=== PATIENT | male | born 1965 ===

== ENCOUNTER 2024-11-21 14:56 | Inpatient (IN) | payer OTHER, SELFPAY ==
[2024-11-21 15:24] VITALS: BP 141/67
[2024-11-21] MEDS: NULYTELY SOLUTION 4 LITERS PO (16:40)
[2024-11-21 16:42] LABS: % Basophils 0.3 % (0-2); % Eosinophils 0.5 % (0-6); % Lymphocytes 25.1 % (20.5-51.1); % Neutrophils 66.1 % (42.2-75.2); Absolute Lymphocytes 0.9 10^3/uL (1.2-3.4); Absolute Monocytes 0.3 10^3/uL (0.1-0.6); Absolute Neutrophils 2.5 10^3/uL (1.4-6.5); Hematocrit 33.7 % (39.0-52.0); Hemoglobin 11.3 g/dL (13.0-18.0); Mean Corp Hgb Conc. 33.5 g/dL (33.0-37.0); Mean Corpuscular Hgb 32.8 pg (27.0-31.0); Mean Platelet Volume 10.4 fL (7.4-10.4); Nucleated Red Blood Cells % 0 % (-); Platelet Count 157 10^3/uL (130-400); Red Blood Cell Count 3.44 10^6/uL (4.70-6.10); Red Cell Dist. Width 12.1 % (11.5-14.5); White Blood Cell Count 3.7 10^3/uL (4.8-10.8)
[2024-11-21 16:46] LABS: INR 1.18; PT 15.3 Sec (11.4-14.6)
[2024-11-21 16:47] LABS: APTT 31.4 Sec (23.4-35.0)
[2024-11-21 17:04] LABS: Blood Urea Nitrogen 15 mg/dl (9-20); Calcium 9.2 mg/dl (8.4-10.2); Carbon Dioxide 21 mmol/L (22-30); Chloride 101 mmol/L (98-107); Estimated Creatinine Clearance 107 ml/min; Glucose 88 mg/dl (70-99); Potassium 4.7 mmol/L (3.5-5.1); Sodium 133 mmol/L (135-145); eGFR > 60.00
--- NOTE | 2024-11-21 17:15 | VATNOTE ---
unable to start IV and obtain labs x2; Day KAMILLA De Leon Serafin to attempt.
--- NOTE | 2024-11-21 17:25 | W.PN.ADMIT ---
Progress Note - Admit
Progress Note - Admit
Full admission H&P to be dictated.
History, vitals, labs, prior records reviewed. Patient seen and examined.
59-year-old male known to me with Down syndrome who has a known sigmoid stenosis/stricture (at 30 cm based on prior reports) with associated diverticular disease which is apparently unable to be traversed endoscopically. I saw him in the office a
few months ago for evaluation. I initially recommended a virtual colonoscopy which was not ultimately performed due to a number of reasons. I also recommended planned admission to the hospital for bowel prep day 1, flexible sigmoidoscopy by me for
tattooing of the stricture on day 2, followed by a robotic sigmoidectomy on day 3. I have previously discussed the planned operation in detail with his power of prosecuting attorney/next of kin, Andres. Risks and benefits were discussed previously in the
office and over the phone. Risks covered included but are not limited to bleeding, infection, anastomotic leak, and asthma stricture, ureteral injury, bowel or solid organ injury, hernia formation, conversion open, potential for a stoma, urinary
sexual dysfunction, and anesthetic risk. Andres understood and agreed to the procedure. Today he will undergo the bowel prep. I will obtain a hospitalist consult for medical management of this medical issues. Loss of ET nursing Ferdinand tomorrow
just in case a temporary stoma is created.
--- NOTE | 2024-11-21 17:54 | CON.HOSP ---
Consultation
-
Date/Time Consultation Requested: November 21, 2024 5:55 PM
Date/Time Consultation Performed: November 21, 2024 6 PM
Requesting Provider: Dr. Collins
Performing Provider: Dr. Urban
Reason for Consultation: Hypertension, diabetes
Family Physician
-
Family Physician: Gini Gloria MD
Chief Complaint
-
Sigmoid stricture
History of Present Illness
59-year-old male with Down syndrome brought in for management of his sigmoid stricture. We were asked to see him in consultation for management of his medical conditions including diabetes and high blood pressure.
Patient himself is a poor historian due to Down syndrome. Information obtained by reviewing medical records.
Medical History
Past Medical History
Past Medical History: Reports Other
Additional Past Medical History:
DM2
Essential hypertension
Hyperlipidemia
GERD
Down syndrome
Diverticulosis
Sigmoid stricture
Past Surgical History: Reports None
Social History
Tobacco: Non-smoker
Alcohol: None
Drug: None
Family History
Family History: Reviewed & Not Pertinent
Allergies / Home Medications
Allergies reflects when Allergies were last updated in [employer].
Home Medications with original date entered in [employer]
Allergy/Medication List:
Allergies
Allergy/AdvReac Type Severity Reaction Status Date / Time
No Known Allergies Allergy Unverified 11/21/24 12:56
Home Medications
Vitamin D (with calcium) 11/21/24
atorvastatin 40 mg tablet 40 mg PO DAILY 11/21/24
cyanocobalamin (vitamin B-12) 1,000 mcg tablet 1,000 mcg PO DAILY 11/21/24
folic acid 1 mg tablet 1 mg PO DAILY 11/21/24
gemfibrozil 600 mg tablet 600 mg PO BID 11/21/24
metformin 1,000 mg tablet,extended release 24hr (osmotic) 1,000 mg PO BID 11/21/24
omeprazole 20 mg tablet,delayed release 20 mg PO DAILY 11/21/24
ramipril 10 mg tablet 10 mg PO DAILY 11/21/24
vitamin B complex 1 tab PO DAILY 11/21/24
Review of Systems
-
History Source: Patient
A 12 point Review of Systems was completed except as noted: Yes
Physical Exam
Vital Signs
Vital Signs
Temp Pulse Resp BP Pulse Ox
97.6 F 60 16 141/67 100
11/21/24 15:24 11/21/24 15:24 11/21/24 15:24 11/21/24 15:24 11/21/24 15:24
Physical Exam
General: Well Developed, Well Nourished, No Apparent Distress and Comfortable
HEENT: Normocephalic, Anicteric and Moist Mucous Membranes
Respiratory: Clear
Cardiac: S1/S2 and Regular Rhythm
GI: Soft, Non Tender and Non Distended
Musculoskeletal: No Clubbing, No Cyanosis and No Edema
Skin: Warm and Dry
Neuro: Awake, Alert and Oriented
Hematologic/Lymphatic: No Lymphadenopathy
Psych: Calm
Laboratory Results
-
Laboratory Results
11/21/24 16:25
11/21/24 16:25
PT 15.3 Sec (11.4-14.6) H 11/21/24 16:25
INR 1.18 11/21/24 16:25
APTT 31.4 Sec (23.4-35.0) 11/21/24 16:25
Impression / Plan
-
Sigmoid stricture -due to diverticulosis. Plan per colorectal surgery. Flexible sigmoidoscopy tomorrow, followed by robotic sigmoidectomy the following day. Getting bowel prep today.
Appears medically stable to proceed. Can check preoperative EKG.
Macrocytic anemia -hemoglobin noted to be 11.3. MCV 98. Etiology and chronicity unknown. Can check anemia labs.
Leukopenia -WBC count 3.7. Absolute lymphopenia noted. ANC is normal. Unclear if this is his baseline, recheck CBC in the morning.
Hyponatremia -sodium 133. Unclear etiology. Check serum osmolality and urine studies. Initiate 48 ounce fluid restriction.
Essential hypertension -stable. Continue ramipril.
Hyperlipidemia -on gemfibrozil, atorvastatin.
DM2 without hyperglycemia -on metformin at home. Hold metformin in the hospital, use low resistance NovoLog scale. Check hemoglobin A1c.
GERD
Diverticulosis
Down syndrome
Obesity due to excess calories
Thank you very much for the consultation. Will follow along with you.
--- NOTE | 2024-11-21 18:26 | PTCARENOTE ---
Received patient as a direct admission. Arrived around 1515 accompanied by cousin/poa. Lilia Esteban, PAC made aware of patients arrival. Patient oriented to room. Call patel in reach.
[2024-11-21 18:33] LABS: Reticulocyte Count 1.5 % (0.4-2.8)
[2024-11-21 18:49] LABS: Iron 112 ug/dl (49-181)
[2024-11-21 18:58] LABS: Percent Saturation 41 % (20-50); Total Iron Binding Capacity 268 ug/dl (261-462)
[2024-11-21 19:05] LABS: Osmolality Serum 274 mOsm/kg (275-300)
[2024-11-21 19:28] LABS: Osmolality Urine 191 mOsm/kg (300-900)
[2024-11-21 19:35] LABS: Urine Sodium 39 mmol/L (30-90)
[2024-11-21 20:16] LABS: Folate > 20.0 ng/ml (2.76-20); Vitamin B12 223 pg/ml (239-931)
[2024-11-21] MEDS: LOPID 600 MG PO (22:17)
[2024-11-21 23:05] VITALS: BP 126/64
[2024-11-22] VITALS (10 sets, daily range): BP systolic 14–132; BP diastolic 51–72
[2024-11-22] LABS: Glucose - Point of Care 85 mg/dl (70-99)
[2024-11-22] MEDS: NOVOLOG FLEXPEN-LOW RESISTANCE SC ×5 (00:08→22:54)
[2024-11-22] MEDS: NSS 1000 IV ×2 (00:36→13:29)
[2024-11-22 05:50] LABS: Glucose - Point of Care 79 mg/dl (70-99)
--- NOTE | 2024-11-22 06:41 | PTCARENOTE ---
Pt with multiple BM throughout shift, @ this time yellowish brown, watery.
--- NOTE | 2024-11-22 06:43 | PTCARENOTE ---
Pt blood glucose 79, currently NPO. provided of apple juice understands to report s/s of hypoglycemia to staff immediately. Pt verbalizes s/s of hypoglycemia
--- NOTE | 2024-11-22 07:48 | HPS.HSE ---
Family Physician
-
Family Physician: Gini Gloria MD
Chief Complaint
-
stomach pains/diarrhea
History of Present Illness
59-year-old male with a history of Down syndrome and diabetes presents to [facility] as a direct admission for bowel prep and surgery. He has a known diverticular stricture at 30 cm with associated diverticular disease. He had been
evaluated in the office by Dr. Collins and initially having scheduled for a virtual colonoscopy which was not completed. Due to the sigmoid stricture, it was recommended he undergo a robotic sigmoidectomy. He is admitted for bowel prep on day 1,
flexible sigmoidoscopy on day 2, followed by a robotic sigmoidectomy on day 3.
Medical History
Past Medical History
Past Medical History: Reports Other (downs syndrome, DM2, Essential hypertension, Hyperlipidemia, GERD, Down syndrome, Diverticulosis, Sigmoid stricture)
Past Surgical History: Reports None and Other
Social History
Tobacco: Non-smoker
Alcohol: None
Drug: None
Living: With Family
Family History
Family History: Not pertinent
Allergies / Home Medications
Allergies reflects when Allergies were last updated in [employer].
Home Medications with original date entered in [employer]
Allergy/Medication List:
Allergies: NKDA
Medications:
Vitamin D (with calcium) 11/21/24
atorvastatin 40 mg tablet 40 mg PO DAILY 11/21/24
cyanocobalamin (vitamin B-12) 1,000 mcg tablet 1,000 mcg PO DAILY 11/21/24
folic acid 1 mg tablet 1 mg PO DAILY 11/21/24
gemfibrozil 600 mg tablet 600 mg PO BID 11/21/24
metformin 1,000 mg tablet,extended release 24hr (osmotic) 1,000 mg PO BID 11/21/24
omeprazole 20 mg tablet,delayed release 20 mg PO DAILY 11/21/24
ramipril 10 mg tablet 10 mg PO DAILY 11/21/24
vitamin B complex 1 tab PO DAILY 11/21/24
Review of Systems
-
History Source: Patient
Abdomen/GI: Reports Abdominal Pain and Diarrhea
Physical Exam
Vital Signs
Vital Signs
Temp Pulse Resp BP Pulse Ox
97.4 F 58 17 126/64 97
11/21/24 23:05 11/21/24 23:05 11/21/24 23:05 11/21/24 23:05 11/21/24 23:05
Physical Exam
General: Well Developed and Well Nourished
GI: Soft, Non Tender and Non Distended
Skin: Warm and Dry
Neuro: AO x 3
Psych: Calm
Laboratory Results
-
11/21/24 16:25
Laboratory Results
PT 15.3 Sec (11.4-14.6) H 11/21/24 16:25
INR 1.18 11/21/24 16:25
APTT 31.4 Sec (23.4-35.0) 11/21/24 16:25
Data Reviewed
-
Lab Data: Labs Reviewed by me and Discussed with Physician
Old Records: Reviewed
Impression/Plan
-
IMPRESSION: 59-year-old male with a history of Down syndrome and sigmoid stricture presents to [facility] as a direct admission for a bowel prep, followed by flexible sigmoidoscopy, followed by robotic sigmoidectomy
PLAN:
-Bowel prep today
-Clear liquid diet and n.p.o. at midnight
-Preop medications and laboratory work been ordered
-Out of bed as tolerated
-Will consult hospitalist due to diabetes
-Wound RN for stoma marking
[2024-11-22 07:53] LABS: % Basophils 0.4 % (0-2); % Eosinophils 0.8 % (0-6); % Lymphocytes 32.4 % (20.5-51.1); % Monocytes 10.4 % (1.7-9.3); Absolute Lymphocytes 0.8 10^3/uL (1.2-3.4); Absolute Monocytes 0.3 10^3/uL (0.1-0.6); Absolute Neutrophils 1.4 10^3/uL (1.4-6.5); Hemoglobin 11.2 g/dL (13.0-18.0); Mean Corp Hgb Conc. 33.9 g/dL (33.0-37.0); Mean Corpuscular Hgb 33.3 pg (27.0-31.0); Mean Corpuscular Volume 98.2 fL (80.0-94.0); Mean Platelet Volume 10.7 fL (7.4-10.4); Nucleated Red Blood Cells % 0 % (-); Platelet Count 159 10^3/uL (130-400); Red Blood Cell Count 3.36 10^6/uL (4.70-6.10); Red Cell Dist. Width 12.2 % (11.5-14.5); White Blood Cell Count 2.5 10^3/uL (4.8-10.8)
[2024-11-22] MEDS: FOLVITE 1 MG PO (08:37)
[2024-11-22] MEDS: LOPID 600 MG PO ×2 (08:38→21:16)
[2024-11-22] MEDS: LIPITOR 40 MG PO (08:38)
[2024-11-22] MEDS: PROTONIX 40 MG PO (08:38)
[2024-11-22] MEDS: ALTACE 10 MG PO (08:38)
[2024-11-22 08:45] LABS: Glycohemoglobin (HgbA1c) 6.3 % (4.0-5.6)
--- NOTE | 2024-11-22 10:15 | CM ---
Reviewed the chart notes and spoke with the patient at the bedside and his cousin and CHARMAINE Campos via telephone. The patient resides alone in a two story home with one step to enter. The patient reports no DME or SNF in the past, but has had VN.
The patient could not recall the name of the agency. He is scheduled for a flexible sigmoidoscopy today and a robotic sigmoidectomy tomorrow. The patient confirmed his pharmacy of choice is the [facility] [place]. continues to be
available to patient/family and is monitoring medical plan for needs at discharge.
Plan: Discharge plans will depend on the patient's progress.
--- NOTE | 2024-11-22 10:33 | W.PN.UPDATE ---
Update Note
Progress Note Update
Flexible sigmoidoscopy complete. Some residual stool noted. Intrinsic benign appearing stenosis (not traversable at 25 cm); tattoos placed at 22 cm. Diverticulosis. Tolerated well.
Will resume clears. NPO after MN. Magnesium Citrate later today. OR tomorrow.
Patient's POAAndres, updated.
[2024-11-22 10:42] LABS: Glucose - Point of Care 81 mg/dl (70-99)
[2024-11-22 12:04] LABS: Glucose - Point of Care 57 mg/dl (70-99)
[2024-11-22 12:25] LABS: Glucose - Point of Care 72 mg/dl (70-99)
--- NOTE | 2024-11-22 12:42 | WOUNDNOTE ---
[facility] RN NOTE: Patient visited for bilateral stoma siting as ordered by NICK Bustillos. Patient alert and cooperative. CHARMAINE Campos at bedside. Procedure and rationale for stoma siting explained to patient and POA. The rectus muscle was located and
care was taken to avoid creases and folds. Patient and Andres made aware that surgeon will make final determination for stoma placement. Will follow up with patient if ostomy is placed.
--- NOTE | 2024-11-22 13:00 | W.PN.HOSP.TC ---
Today's Communication/Plan
-
Increase vitamin B12
Assessment / Plan
Assessment / Plan
Gen-AAOx3, NAD, obese
HEENT-NC, AT, anicteric, clear oral mm
Neck-supple
CV-reg, no M, +S1/S2
Lungs-clear B/L
Abd-soft, NT, ND
Ext-no edema
Musculoskeletal-no cyanosis, clubbing
Skin-warm and dry
Neuro-grossly non-focal
Psych-calm, cooperative
Sigmoid stricture -due to diverticulosis. Plan per colorectal surgery. Flexible sigmoidoscopy tomorrow, followed by robotic sigmoidectomy the following day. Getting bowel prep today.
Appears medically stable to proceed. Preoperative EKG shows sinus bradycardia, cannot rule out anterior infarct age undetermined. I spoke with Andres and he denies any history of heart disease for Eriberto. No history of chest pain or shortness of
breath. Recommend outpatient follow-up with his primary care doctor.
Macrocytic anemia -hemoglobin noted to be 11.3. MCV 98. Etiology and chronicity unknown. Vitamin B12 levels noted to be low despite taking B12 replacement at home. Can increase dose to 2000 mcg daily.
No evidence of iron deficiency. Folic acid level normal.
Leukopenia - Absolute lymphopenia noted. ANC is normal. Unclear if this is his baseline.
Hyponatremia -sodium 133. Unclear etiology. Continue fluid restriction. Urine osmolality 191, urine sodium 39, serum osmolality 274.
Essential hypertension -stable. Continue ramipril.
Hyperlipidemia -on gemfibrozil, atorvastatin.
DM2 without hyperglycemia -on metformin at home. Hold metformin in the hospital, use low resistance NovoLog scale. Hemoglobin A1c 6.3%.
GERD
Diverticulosis
Down syndrome
Obesity due to excess calories
Family updated at the bedside.
Anticipated Discharge: > 48 hours
Subjective/Interval History
-
Date of Service: November 22, 2024
Patient seen and examined. No complaints.
Objective Data
-
Labs:
Laboratory Results
11/22/24
07:15
WBC 2.5 L
Hgb 11.2 L
Hct 33.0 L
Plt Count 159
Vital Signs:
Vital Signs
Temp Pulse Resp BP Pulse Ox
98.4 F 52 14 121/59 97
11/22/24 10:58 11/22/24 10:58 11/22/24 10:58 11/22/24 10:58 11/22/24 10:58
I&O
11/21/24 11/22/24 11/23/24
06:59 06:59 06:59
Intake Total 780 / 780
Balance 780 / 780
Review of Systems
-
History Source: Patient
All other systems: Reviewed and negative
[2024-11-22] MEDS: NEOMYCIN 1000 MG PO ×3 (13:28→22:56)
[2024-11-22] MEDS: FLAGYL 1000 MG PO ×3 (13:28→22:56)
[2024-11-22] MEDS: VITAMIN B-12 2000 MCG PO (13:28)
[2024-11-22 14:05] LABS: Glucose - Point of Care 81 mg/dl (70-99)
[2024-11-22] MEDS: CITROMA 300 ML PO (15:00)
[2024-11-22 18:04] LABS: Glucose - Point of Care 78 mg/dl (70-99)
[2024-11-22 22:51] LABS: Glucose - Point of Care 81 mg/dl (70-99)
[2024-11-23] VITALS (15 sets, daily range): BP systolic 80–131; BP diastolic 45–95
[2024-11-23] MEDS: NSS 1000 IV (02:11)
[2024-11-23 03:28] LABS: Glucose - Point of Care 76 mg/dl (70-99)
[2024-11-23 05:30] LABS: Glucose - Point of Care 76 mg/dl (70-99)
[2024-11-23] MEDS: ENTEREG 12 MG PO (06:19)
[2024-11-23] MEDS: NEURONTIN 600 MG PO (06:19)
[2024-11-23] MEDS: TYLENOL 1000 MG PO (06:19)
[2024-11-23] MEDS: HEPARIN 5000 UNITS SC (06:20)
[2024-11-23] MEDS: NOVOLOG FLEXPEN-LOW RESISTANCE SC ×3 (06:24→23:27)
[2024-11-23] MEDS: INVANZ 60 MG IV (06:30)
[2024-11-23 06:37] LABS: % Basophils 0.3 % (0-2); % Eosinophils 0.3 % (0-6); % Immature Granulocytes 0.3 % (0-0.5); % Lymphocytes 26.6 % (20.5-51.1); % Monocytes 8.7 % (1.7-9.3); % Neutrophils 63.8 % (42.2-75.2); Absolute Lymphocytes 0.9 10^3/uL (1.2-3.4); Absolute Monocytes 0.3 10^3/uL (0.1-0.6); Absolute Neutrophils 2.1 10^3/uL (1.4-6.5); Hematocrit 32.2 % (39.0-52.0); Hemoglobin 10.7 g/dL (13.0-18.0); Mean Corp Hgb Conc. 33.2 g/dL (33.0-37.0); Mean Corpuscular Hgb 32.7 pg (27.0-31.0); Mean Corpuscular Volume 98.5 fL (80.0-94.0); Mean Platelet Volume 10.3 fL (7.4-10.4); Nucleated Red Blood Cells % 0 % (-); Platelet Count 142 10^3/uL (130-400); Red Blood Cell Count 3.27 10^6/uL (4.70-6.10); Red Cell Dist. Width 12.1 % (11.5-14.5); White Blood Cell Count 3.3 10^3/uL (4.8-10.8)
[2024-11-23 07:07] LABS: Blood Urea Nitrogen 9 mg/dl (9-20); Calcium 8.6 mg/dl (8.4-10.2); Carbon Dioxide 17 mmol/L (22-30); Chloride 106 mmol/L (98-107); Estimated Creatinine Clearance 107 ml/min; Glucose 73 mg/dl (70-99); Potassium 4.4 mmol/L (3.5-5.1); Sodium 135 mmol/L (135-145); eGFR > 60.00
[2024-11-23 09:15] LABS: Glucose - Point of Care 134 mg/dl (70-99)
--- NOTE | 2024-11-23 12:11 | W.IMMPOSTOP ---
Surgical Immed Post Op Note
-
Primary Surgeon: Meño Collins MD
Assisting Surgeon: YFN De Leon; LM Fuller
Pre-op Diagnosis: sigmoid stricture
Post-op Diagnosis: same
Procedure Performed: 1) robotic sigmoidectomy 2) extensive lysis of adhesions 3) flexible sigmoidoscopy
Anesthesia Type: general plus local
Specimen / Cultures: sigmoid colon to include stricture
Estimated Blood Loss: 50 cc
Complications: no immediate
Operative Findings: stenotic sigmoid adherent to itself, to small bowel, and to pelvic sidewall (lots of chronic adhesions)
#19 Jimbo in pelvis.
Wen, stents, ICG by Dr. Rod of urology. One stent removed at end of case.
Will send back to med surg.
Sips and chips ok.
Patient's POA, Andres, updated via phone.
[2024-11-23 12:34] LABS: Glucose - Point of Care 95 mg/dl (70-99)
--- NOTE | 2024-11-23 13:14 | W.PN.HOSP.TC ---
Today's Communication/Plan
-
Continue current care
Assessment / Plan
Assessment / Plan
Gen-AAOx3, NAD, obese
HEENT-NC, AT, anicteric, clear oral mm
Neck-supple
CV-reg, no M, +S1/S2
Lungs-clear B/L
Abd-soft, NT, ND
Ext-no edema
Musculoskeletal-no cyanosis, clubbing
Skin-warm and dry
Neuro-grossly non-focal
Psych-calm, cooperative
Sigmoid stricture -due to diverticulosis. Stable after robotic sigmoidectomy, lysis of adhesions and flexible sigmoidoscopy 11/23/2024.
Appears medically stable to proceed. Preoperative EKG shows sinus bradycardia, cannot rule out anterior infarct age undetermined. I spoke with Andres and he denies any history of heart disease for Eriberto. No history of chest pain or shortness of
breath. Recommend outpatient follow-up with his primary care doctor.
Macrocytic anemia -hemoglobin relatively stable, monitor for now. MCV 98. Etiology and chronicity unknown. Vitamin B12 levels noted to be low despite taking B12 replacement at home. Continue higher dose of B12.
No evidence of iron deficiency. Folic acid level normal.
Leukopenia - Absolute lymphopenia noted. ANC is normal. Unclear if this is his baseline.
Hyponatremia -sodium 133. Unclear etiology. Continue fluid restriction. Urine osmolality 191, urine sodium 39, serum osmolality 274.
Essential hypertension -stable. Continue ramipril.
Hyperlipidemia -on gemfibrozil, atorvastatin.
DM2 without hyperglycemia -on metformin at home. Hold metformin in the hospital, use low resistance NovoLog scale. Hemoglobin A1c 6.3%. Glucose is controlled.
GERD
Diverticulosis
Down syndrome
Obesity due to excess calories
Full code
Anticipated Discharge: > 48 hours
Subjective/Interval History
-
Date of Service: November 23, 2024
Patient seen and examined. Currently somewhat sedated but arousable in the recovery room. No complaints.
Objective Data
-
Labs:
Laboratory Results
11/23/24
06:00
WBC 3.3 L
Hgb 10.7 L
Hct 32.2 L
Plt Count 142
Sodium 135
Potassium 4.4
Chloride 106
Carbon Dioxide 17 L
BUN 9
Creatinine 0.8
Glucose 73
Calcium 8.6
Vital Signs:
Vital Signs
Temp Pulse Resp BP Pulse Ox
97.0 F 63 16 110/69 99
11/23/24 12:22 11/22/24 22:55 11/22/24 22:55 11/22/24 22:55 11/23/24 12:22
I&O
11/22/24 11/23/24 11/24/24
06:59 06:59 06:59
Intake Total 780 / 780 480 / 480
Output Total 250 / 250
Balance 780 / 780 480 / 480 -250 / -250
Review of Systems
-
History Source: Patient
All other systems: Reviewed and negative
[2024-11-23] MEDS: TORADOL 10 MG IV ×3 (13:30→23:27)
[2024-11-23] MEDS: NORMOSOL-R/PLASMALYTE-A 1000 IV (13:39)
[2024-11-23] MEDS: LOPID PO (14:20)
--- NOTE | 2024-11-23 15:22 | CM ---
Reviewed the chart notes. Patient is s/p robotic sigmoidectomy, extensive lysis of adhesions, and flexible sigmoidoscopy today. CM continues to be available to patient/family and is monitoring medical plan for needs at discharge.
Plan: Discharge to home when medically stable. No needs identified at this time.
--- NOTE | 2024-11-23 15:39 | PTCARENOTE ---
pt received from PACU drowsy but responds to verbal stimuli. denies pain. LCTA RA B/L. abd tender, 4 surgical sites well approximated with glue and rlq MOHAMUD drain site covered with surgical dressing CDI. MOHAMUD output SS moderate amt. Wen draining dark
red. No edema, +PP b/l. CB in reach.
[2024-11-23] MEDS: ALTACE 10 MG PO (15:48)
[2024-11-23] MEDS: PROTONIX 40 MG PO (15:48)
[2024-11-23] MEDS: FOLVITE 1 MG PO (15:48)
[2024-11-23] MEDS: TYLENOL 650 MG PO ×3 (15:52→23:29)
[2024-11-23] MEDS: LIPITOR 40 MG PO (15:52)
[2024-11-23] MEDS: VITAMIN B-12 2000 MCG PO (15:52)
[2024-11-23 17:36] LABS: Glucose - Point of Care 169 mg/dl (70-99)
[2024-11-23] MEDS: NOVOLOG FLEXPEN-LOW RESISTANCE 1 UNITS SC (19:07)
[2024-11-23] MEDS: LOPID 600 MG PO (20:50)
[2024-11-23 23:27] LABS: Glucose - Point of Care 116 mg/dl (70-99)
[2024-11-24 03:36] VITALS: BP 103/66
[2024-11-24] MEDS: NORMOSOL-R/PLASMALYTE-A 1000 IV (03:39)
[2024-11-24] MEDS: TYLENOL 650 MG PO ×5 (03:39→23:36)
[2024-11-24 05:49] LABS: Glucose - Point of Care 110 mg/dl (70-99)
[2024-11-24] MEDS: TORADOL 10 MG IV ×4 (05:50→23:35)
[2024-11-24] MEDS: NOVOLOG FLEXPEN-LOW RESISTANCE SC (05:51)
[2024-11-24 06:29] LABS: % Immature Granulocytes 0.3 % (0-0.5); % Lymphocytes 8.2 % (20.5-51.1); % Monocytes 7.3 % (1.7-9.3); % Neutrophils 84.2 % (42.2-75.2); Absolute Lymphocytes 0.5 10^3/uL (1.2-3.4); Absolute Monocytes 0.5 10^3/uL (0.1-0.6); Absolute Neutrophils 5.6 10^3/uL (1.4-6.5); Hematocrit 30.1 % (39.0-52.0); Hemoglobin 10.2 g/dL (13.0-18.0); Mean Corp Hgb Conc. 33.9 g/dL (33.0-37.0); Mean Corpuscular Hgb 32.7 pg (27.0-31.0); Mean Corpuscular Volume 96.5 fL (80.0-94.0); Mean Platelet Volume 10.3 fL (7.4-10.4); Nucleated Red Blood Cells % 0 % (-); Platelet Count 155 10^3/uL (130-400); Red Blood Cell Count 3.12 10^6/uL (4.70-6.10); White Blood Cell Count 6.6 10^3/uL (4.8-10.8)
[2024-11-24 06:54] LABS: Blood Urea Nitrogen 15 mg/dl (9-20); Carbon Dioxide 18 mmol/L (22-30); Chloride 107 mmol/L (98-107); Estimated Creatinine Clearance 94 ml/min; Glucose 112 mg/dl (70-99); Magnesium 2.4 mg/dl (1.6-2.3); Potassium 4.4 mmol/L (3.5-5.1); Sodium 135 mmol/L (135-145); eGFR > 60.00
[2024-11-24 07:35] VITALS: BP 139/64
[2024-11-24] MEDS: ALTACE 10 MG PO (09:09)
[2024-11-24] MEDS: PROTONIX 40 MG PO (09:09)
[2024-11-24] MEDS: VITAMIN B-12 2000 MCG PO (09:10)
[2024-11-24] MEDS: FOLVITE 1 MG PO (09:10)
[2024-11-24] MEDS: LIPITOR 40 MG PO (09:11)
[2024-11-24] MEDS: LOPID 600 MG PO ×2 (09:11→19:45)
[2024-11-24] MEDS: ENTEREG 12 MG PO ×2 (09:11→19:45)
--- NOTE | 2024-11-24 09:29 | W.PN.CRS1 ---
Today's Communication / Plan
-
clears
stent removed
d/c noguera
lovenox
Assessment/Plan
-
POD#1 1) robotic sigmoidectomy 2) extensive lysis of adhesions 3) flexible sigmoidoscopy
Vitals normal
Hgb 10.2. Wbc 6.6
-Advance to clears
-D/C IVFs when tolerating po intake
-Stent removed by provider at bedside
-D/C noguera
-OOB as tolerated
-Lovenox for DVT prophylaxis. TEDS/SCDS in place.
-Pain control: tylenol/toradol standing, Dilaudid PRN
-OR pathology pending
-Discussed surgery with patient and cousin at bedside
-Will remove drain prior to d/c
-Appreciate medicine
Subjective Data
Procedure
11/23/24- 1) robotic sigmoidectomy 2) extensive lysis of adhesions 3) flexible sigmoidoscopy
Subjective Data
Date of Service: November 24, 2024
Patient states he feels well. He has no nausea or vomiting. He is hungry. He has no complaints.
Objective Data
-
Vital Signs
Temp Pulse Resp BP Pulse Ox
97.9 F 74 16 139/64 97
11/24/24 07:35 11/24/24 07:35 11/24/24 07:35 11/24/24 07:35 11/24/24 07:35
Intake & Output
11/23/24 11/24/24 11/25/24
06:59 06:59 06:59
Intake Total 480 / 480 1280 / 1280
Output Total 1460 / 1460
Balance 480 / 480 -180 / -180
Intake:
Oral fluids 480 / 480 120 / 120
IV fluids (Total) 1160 / 1160
Normosal 200 / 200
Output:
Drain Output (Total) 160 / 160
Right Upper Abdomen Santana- 160 / 160
Li
Urine, Noguera 1300 / 1300
Other:
Number of approximated MODERATE 2
amounts of urine
Number of unmeasured liquid
stools
Rectum 1
Lab Results
11/24/24 05:46
11/24/24 05:46
Physical Exam
-
General: No Acute Distress and AOx3
Abdomen: Soft, Non Distended, Non Tender and Other (odilia drain serosanginous)
Skin: Warm and Dry
--- NOTE | 2024-11-24 09:48 | CM ---
Reviewed the chart notes. Diet advanced to clears. Stents and noguera removed. Per notes, drain will be removed prior to discharge. CM continues to be available to patient/family and is monitoring medical plan for needs at discharge.
Plan: Discharge to home when medically stable. No needs anticipated.
[2024-11-24 11:30] VITALS: BP 117/61
[2024-11-24 12:20] LABS: Glucose - Point of Care 157 mg/dl (70-99)
[2024-11-24] MEDS: NOVOLOG FLEXPEN-LOW RESISTANCE 1 UNITS SC (13:14)
--- NOTE | 2024-11-24 13:49 | W.PN.HOSP.TC ---
Today's Communication/Plan
-
Continue current care
Assessment / Plan
Assessment / Plan
Gen-AAOx3, NAD, obese
HEENT-NC, AT, anicteric, clear oral mm
Neck-supple
CV-reg, no M, +S1/S2
Lungs-clear B/L
Abd-soft, NT, ND
Ext-no edema
Musculoskeletal-no cyanosis, clubbing
Skin-warm and dry
Neuro-grossly non-focal
Psych-calm, cooperative
Sigmoid stricture -due to diverticulosis. Stable after robotic sigmoidectomy, lysis of adhesions and flexible sigmoidoscopy 11/23/2024. Stools are recorded as brown/green and loose.
Tolerating clears.
Macrocytic anemia -hemoglobin relatively stable, monitor for now. MCV 98. Etiology and chronicity unknown. Vitamin B12 levels noted to be low despite taking B12 replacement at home. Continue higher dose of B12.
No evidence of iron deficiency. Folic acid level normal.
Leukopenia - Absolute lymphopenia noted. ANC is normal. Unclear if this is his baseline. WBC count now normal.
Hyponatremia -resolved.
Essential hypertension -stable. Continue ramipril.
Hyperlipidemia -on gemfibrozil, atorvastatin.
DM2 without hyperglycemia -on metformin at home. Hold metformin in the hospital, use low resistance NovoLog scale. Hemoglobin A1c 6.3%. Glucose is controlled.
GERD
Diverticulosis
Down syndrome
Obesity due to excess calories
Full code
Family updated at the bedside.
Anticipated Discharge: 24 - 48 hours
Subjective/Interval History
-
Date of Service: November 24, 2024
Patient seen and examined. Complaining of mild abdominal pain.
Objective Data
-
Labs:
Laboratory Results
11/24/24
05:46
WBC 6.6
Hgb 10.2 L
Hct 30.1 L
Plt Count 155
Sodium 135
Potassium 4.4
Chloride 107
Carbon Dioxide 18 L
BUN 15
Creatinine 0.9
Glucose 112 H
Calcium 8.0 L
Vital Signs:
Vital Signs
Temp Pulse Resp BP Pulse Ox
98.0 F 62 16 117/61 96
11/24/24 11:30 11/24/24 11:30 11/24/24 11:30 11/24/24 11:30 11/24/24 11:30
I&O
11/23/24 11/24/24 11/25/24
06:59 06:59 06:59
Intake Total 480 / 480 1280 / 1280
Output Total 1460 / 1460
Balance 480 / 480 -180 / -180
Review of Systems
-
History Source: Patient
All other systems: Reviewed and negative
[2024-11-24 15:45] VITALS: BP 141/64
[2024-11-24 17:34] LABS: Glucose - Point of Care 233 mg/dl (70-99)
[2024-11-24] MEDS: NORMOSOL-R/PLASMALYTE-A IV (17:49)
[2024-11-24] MEDS: TYLENOL PO (17:51)
[2024-11-24] MEDS: LOVENOX 40 MG SC (18:04)
[2024-11-24] MEDS: NOVOLOG FLEXPEN-LOW RESISTANCE 2 UNITS SC (18:05)
[2024-11-24 22:25] LABS: Glucose - Point of Care 132 mg/dl (70-99)
[2024-11-24 23:21] VITALS: BP 122/55
[2024-11-25] MEDS: TYLENOL PO (04:00)
[2024-11-25 05:17] VITALS: BMI 30.6
--- NOTE | 2024-11-25 05:26 | PTCARENOTE ---
Pt incontinent overnight for small lose BM and void. Pt was able to void 300ml in urinal. urine bloody but appears to be getting kiln drawer then previous void, no clots noted.
[2024-11-25] MEDS: TORADOL 10 MG IV ×2 (05:55→14:04)
[2024-11-25 06:33] LABS: % Basophils 0.3 % (0-2); % Immature Granulocytes 0.3 % (0-0.5); % Lymphocytes 28.6 % (20.5-51.1); % Monocytes 8.2 % (1.7-9.3); % Neutrophils 61.6 % (42.2-75.2); Absolute Lymphocytes 1.1 10^3/uL (1.2-3.4); Absolute Monocytes 0.3 10^3/uL (0.1-0.6); Absolute Neutrophils 2.4 10^3/uL (1.4-6.5); Hematocrit 27.3 % (39.0-52.0); Hemoglobin 9.3 g/dL (13.0-18.0); Mean Corp Hgb Conc. 34.1 g/dL (33.0-37.0); Mean Corpuscular Hgb 32.9 pg (27.0-31.0); Mean Corpuscular Volume 96.5 fL (80.0-94.0); Mean Platelet Volume 10.4 fL (7.4-10.4); Nucleated Red Blood Cells % 0 % (-); Platelet Count 142 10^3/uL (130-400); Red Blood Cell Count 2.83 10^6/uL (4.70-6.10); Red Cell Dist. Width 11.9 % (11.5-14.5); White Blood Cell Count 3.9 10^3/uL (4.8-10.8)
[2024-11-25 06:57] LABS: Blood Urea Nitrogen 13 mg/dl (9-20); Calcium 7.9 mg/dl (8.4-10.2); Carbon Dioxide 19 mmol/L (22-30); Chloride 101 mmol/L (98-107); Estimated Creatinine Clearance 95 ml/min; Glucose 117 mg/dl (70-99); Potassium 3.8 mmol/L (3.5-5.1); Sodium 129 mmol/L (135-145); eGFR > 60.00
[2024-11-25 07:13] VITALS: BP 137/69
[2024-11-25] MEDS: NOVOLOG FLEXPEN-LOW RESISTANCE SC ×3 (07:44→16:22)
[2024-11-25 07:55] LABS: Glucose - Point of Care 108 mg/dl (70-99)
[2024-11-25] MEDS: PROTONIX 40 MG PO (09:08)
[2024-11-25] MEDS: VITAMIN B-12 2000 MCG PO (09:08)
[2024-11-25] MEDS: LOPID 600 MG PO ×2 (09:09→19:56)
[2024-11-25] MEDS: ALTACE 10 MG PO (09:09)
[2024-11-25] MEDS: ENTEREG 12 MG PO (09:09)
[2024-11-25] MEDS: FOLVITE 1 MG PO (09:20)
[2024-11-25] MEDS: TYLENOL 650 MG PO ×4 (09:20→19:56)
[2024-11-25] MEDS: LIPITOR 40 MG PO (09:20)
--- NOTE | 2024-11-25 11:03 | W.PN.CRS1 ---
Addendum entered and electronically signed by Ron Campos MD 11/25/24 11:22:
Patient seen and examined with surgical HEAD [employer] FILTER TANK TENDER. Agree with documented progress note.
Patient offers no complaints. Sitting comfortably at bedside in his chair. He has been ambulating the halls regularly.
Minimal postoperative pain.
Reports bowel movements, tolerating clears
AFVSS
ABD: Soft, obese, nondistended, minimal incisional tenderness. Incision sites all with glue dressings.
ODILIA with serosanguineous fluid
A/P: POD #2 RAL sigmoidectomy/lysis of adhesions
Full liquid diet
DC IVFs
Ambulate
Original Note:
Today's Communication / Plan
-
Advance to FLD
Assessment/Plan
-
59-year-old male with a history of DM, Down syndrome and sigmoid stricture presented for scheduled surgery
POD#1=2 1) robotic sigmoidectomy 2) extensive lysis of adhesions 3) flexible sigmoidoscopy
AFVSS
Hyponatremia on labs today, likely secondary to IVF
Tolerating clears with +bm's
voiding since noguera removed
-Advance to fulls
-Continue off IVF
-OOB as tolerated
-Lovenox for DVT prophylaxis. TEDS/SCDS in place.
-Pain control: tylenol/toradol standing, oxycodone PRN
-OR pathology pending
-Will remove drain prior to d/c
-Appreciate medicine
Subjective Data
Procedure
11/23/24- 1) robotic sigmoidectomy 2) extensive lysis of adhesions 3) flexible sigmoidoscopy
Subjective Data
Date of Service: November 25, 2024
Patient seen and examined at bedside with Dr. Campos. OOB ambulating. Notes he has passed some stools. Would really like some coffee. Denies pain currently but did have some last night which was relieved with analgesics.
Objective Data
-
Vital Signs
Temp Pulse Resp BP Pulse Ox
97.8 F 56 14 137/69 93
11/25/24 07:13 11/25/24 07:13 11/25/24 07:13 11/25/24 07:13 11/25/24 07:13
Intake & Output
11/24/24 11/25/24 11/26/24
06:59 06:59 07:59
Intake Total 1280 / 1280 1520 / 1520
Output Total 1460 / 1460 360 / 360 15
Balance -180 / -180 1160 / 1160 -15 / -15
Intake:
Oral fluids 120 / 120 1520 / 1520
IV fluids (Total) 1160 / 1160
Normosal 200 / 200
Output:
Drain Output (Total) 160 / 160 60 / 60 15
Right Upper Abdomen Santana- 160 / 160 60 / 60 15 15
Li
Urine, Noguera 1300 / 1300
Urine, Voided 300 / 300
Other:
Number of approximated MODERATE 1
amounts of urine
How many times incontinent 1
SMALL amount urine
Number of unmeasured liquid
stools
Rectum 1 3
Lab Results
11/25/24 05:50
11/25/24 05:50
Physical Exam
-
General: No Acute Distress and AOx3
Abdomen: Soft, Non Distended, Non Tender and Other (odilia drain serosanginous)
Skin: Warm and Dry
Incision: Clear, Dry, Intact (dermabond)
[2024-11-25 11:54] LABS: Glucose - Point of Care 110 mg/dl (70-99)
--- NOTE | 2024-11-25 12:57 | W.PN.HOSP.TC ---
Today's Communication/Plan
-
Fluid restriction
Assessment / Plan
Assessment / Plan
Gen-AAOx3, NAD, obese
HEENT-NC, AT, anicteric, clear oral mm
Neck-supple
CV-reg, no M, +S1/S2
Lungs-clear B/L
Abd-soft, NT, ND
Ext-no edema
Musculoskeletal-no cyanosis, clubbing
Skin-warm and dry
Neuro-grossly non-focal
Psych-calm, cooperative
Sigmoid stricture -due to diverticulosis. Stable after robotic sigmoidectomy, lysis of adhesions and flexible sigmoidoscopy 11/23/2024. Stools are recorded as brown and loose.
Diet advanced to full liquids by surgical service.
Macrocytic anemia -hemoglobin relatively stable, monitor for now. MCV 98. Etiology and chronicity unknown. Vitamin B12 levels noted to be low despite taking B12 replacement at home. Continue higher dose of B12.
No evidence of iron deficiency. Folic acid level normal.
Leukopenia - Absolute lymphopenia noted. ANC is normal. Unclear if this is his baseline. WBC count now normal.
Hyponatremia -129 today. Fluid restriction ordered.
Essential hypertension -stable. Continue ramipril.
Hyperlipidemia -on gemfibrozil, atorvastatin.
DM2 without hyperglycemia -on metformin at home. Hold metformin in the hospital, use low resistance NovoLog scale. Hemoglobin A1c 6.3%. Glucose is controlled.
GERD
Diverticulosis
Down syndrome
Obesity due to excess calories
Full code
Anticipated Discharge: 24 - 48 hours
Subjective/Interval History
-
Date of Service: November 25, 2024
Patient seen and examined. No complaints.
Objective Data
-
Labs:
Laboratory Results
11/25/24
05:50
WBC 3.9 L
Hgb 9.3 L
Hct 27.3 L
Plt Count 142
Sodium 129 L
Potassium 3.8
Chloride 101
Carbon Dioxide 19 L
BUN 13
Creatinine 0.9
Glucose 117 H
Calcium 7.9 L
Vital Signs:
Vital Signs
Temp Pulse Resp BP Pulse Ox
97.8 F 56 14 137/69 93
11/25/24 07:13 11/25/24 07:13 11/25/24 07:13 11/25/24 07:13 11/25/24 07:13
I&O
11/24/24 11/25/24 11/26/24
06:59 06:59 07:59
Intake Total 1280 / 1280 1520 / 1520
Output Total 1460 / 1460 360 / 360 15 / 15
Balance -180 / -180 1160 / 1160 -15 / -15
Review of Systems
-
History Source: Patient
All other systems: Reviewed and negative
[2024-11-25 14:24] LABS: TSH 0.67 uIU/ml (0.47-4.68)
[2024-11-25 15:39] VITALS: BP 118/58
[2024-11-25 16:20] LABS: Glucose - Point of Care 116 mg/dl (70-99)
[2024-11-25] MEDS: LOVENOX 40 MG SC (18:08)
[2024-11-25] MEDS: TORADOL IV (18:09)
[2024-11-25] MEDS: ENTEREG PO (19:27)
[2024-11-25 22:06] LABS: Glucose - Point of Care 129 mg/dl (70-99)
[2024-11-25 23:16] VITALS: BP 114/61
[2024-11-26] MEDS: TORADOL IV ×2 (00:25→17:38)
[2024-11-26] MEDS: TYLENOL PO ×3 (00:26→23:03)
[2024-11-26] MEDS: TORADOL 10 MG IV ×3 (05:45→23:03)
[2024-11-26 06:00] VITALS: BMI 30.2
[2024-11-26 06:48] LABS: % Basophils 0.3 % (0-2); % Eosinophils 2.5 % (0-6); % Lymphocytes 37.5 % (20.5-51.1); % Monocytes 8.9 % (1.7-9.3); % Neutrophils 50.8 % (42.2-75.2); Absolute Eosinophils 0.1 10^3/uL (0-0.7); Absolute Lymphocytes 1.4 10^3/uL (1.2-3.4); Absolute Monocytes 0.3 10^3/uL (0.1-0.6); Absolute Neutrophils 1.8 10^3/uL (1.4-6.5); Hematocrit 29.2 % (39.0-52.0); Mean Corp Hgb Conc. 34.2 g/dL (33.0-37.0); Mean Corpuscular Hgb 33.1 pg (27.0-31.0); Mean Corpuscular Volume 96.7 fL (80.0-94.0); Mean Platelet Volume 10.7 fL (7.4-10.4); Nucleated Red Blood Cells % 0 % (-); Platelet Count 152 10^3/uL (130-400); Red Blood Cell Count 3.02 10^6/uL (4.70-6.10); Red Cell Dist. Width 11.9 % (11.5-14.5); White Blood Cell Count 3.6 10^3/uL (4.8-10.8)
[2024-11-26 07:10] LABS: Blood Urea Nitrogen 11 mg/dl (9-20); Calcium 8.3 mg/dl (8.4-10.2); Carbon Dioxide 23 mmol/L (22-30); Chloride 102 mmol/L (98-107); Estimated Creatinine Clearance 94 ml/min; Glucose 96 mg/dl (70-99); Potassium 4.1 mmol/L (3.5-5.1); Sodium 135 mmol/L (135-145); eGFR > 60.00
[2024-11-26 07:56] LABS: Glucose - Point of Care 88 mg/dl (70-99)
[2024-11-26] MEDS: ENTEREG PO (08:03)
[2024-11-26] MEDS: NOVOLOG FLEXPEN-LOW RESISTANCE SC ×2 (08:03→12:02)
[2024-11-26 08:11] VITALS: BP 130/70
[2024-11-26] MEDS: LIPITOR 40 MG PO (09:25)
[2024-11-26] MEDS: PROTONIX 40 MG PO (09:25)
[2024-11-26] MEDS: ALTACE 10 MG PO (09:25)
[2024-11-26] MEDS: TYLENOL 650 MG PO ×4 (09:26→21:00)
[2024-11-26] MEDS: FOLVITE 1 MG PO (09:27)
[2024-11-26] MEDS: LOPID 600 MG PO ×2 (09:27→21:02)
[2024-11-26] MEDS: VITAMIN B-12 2000 MCG PO (09:27)
--- NOTE | 2024-11-26 11:34 | W.PN.CRS1 ---
Today's Communication / Plan
-
`
Assessment/Plan
-
59-year-old male with a history of DM, Down syndrome and sigmoid stricture presented for scheduled surgery
POD#3 1) robotic sigmoidectomy 2) extensive lysis of adhesions 3) flexible sigmoidoscopy
AFVSS
Doing well postop, return of GI function
Continue routine postop care
Low residue diet
Anticipating DC home tomorrow
Subjective Data
Procedure
11/23/24- 1) robotic sigmoidectomy 2) extensive lysis of adhesions 3) flexible sigmoidoscopy
Subjective Data
Date of Service: November 26, 2024
Patient doing very well postop
Minimal incisional discomfort, no pain
Tolerated low residue diet for breakfast
bowel movement yesterday
Objective Data
-
Vital Signs
Temp Pulse Resp BP Pulse Ox
97.1 F 54 16 130/70 100
11/26/24 08:11 11/26/24 08:11 11/26/24 08:11 11/26/24 08:11 11/26/24 08:11
Intake & Output
11/25/24 11/26/24 11/27/24
05:59 06:59 06:59
Intake Total 320 / 320
Output Total 20 / 20
Balance 300 / 300
Intake:
Oral fluids 320 / 320
Output:
Drain Output (Total) 20 / 20
Right Upper Abdomen Santana- 20 / 20
Li
Urine, Voided
Other:
Number of approximated MODERATE 1
amounts of urine
How many times incontinent
SMALL amount urine
Number of unmeasured liquid
stools
Rectum
Lab Results
11/26/24 05:38
11/26/24 05:38
Physical Exam
-
General: No Acute Distress and AOx3
Abdomen: Soft, Non Distended, Non Tender and Other (odilia drain serosanginous)
Skin: Warm and Dry
Incision: Clear, Dry, Intact (dermabond)
[2024-11-26 11:41] LABS: Glucose - Point of Care 127 mg/dl (70-99)
--- NOTE | 2024-11-26 12:45 | W.PN.HOSP.TC ---
Today's Communication/Plan
-
Continue current care
Assessment / Plan
Assessment / Plan
Gen-AAOx3, NAD, obese
HEENT-NC, AT, anicteric, clear oral mm
Neck-supple
CV-reg, no M, +S1/S2
Lungs-clear B/L
Abd-soft, NT, ND
Ext-no edema
Musculoskeletal-no cyanosis, clubbing
Skin-warm and dry
Neuro-grossly non-focal
Psych-calm, cooperative
Sigmoid stricture -due to diverticulosis. Stable after robotic sigmoidectomy, lysis of adhesions and flexible sigmoidoscopy 11/23/2024. Stools are recorded as brown and loose.
Diet advanced to low residue by surgical service.
Macrocytic anemia -hemoglobin relatively stable, monitor for now. MCV 98. Etiology and chronicity unknown. Vitamin B12 levels noted to be low despite taking B12 replacement at home. Continue higher dose of B12.
No evidence of iron deficiency. Folic acid level normal.
Leukopenia - Absolute lymphopenia noted. ANC is normal. Unclear if this is his baseline.
Hyponatremia - improved, 135. Mild fluid restriction.
Essential hypertension -stable. Continue ramipril.
Hyperlipidemia -on gemfibrozil, atorvastatin.
DM2 without hyperglycemia -on metformin at home. Hold metformin in the hospital, use low resistance NovoLog scale. Hemoglobin A1c 6.3%. Glucose is controlled.
GERD
Diverticulosis
Down syndrome
Obesity due to excess calories
Full code
Dispo -likely discharge Wednesday as per surgical service.
Anticipated Discharge: Within 24 hours
Subjective/Interval History
-
Date of Service: November 26, 2024
Patient seen and examined. No complaints.
Objective Data
-
Labs:
Laboratory Results
11/26/24
05:38
WBC 3.6 L
Hgb 10.0 L
Hct 29.2 L
Plt Count 152
Sodium 135
Potassium 4.1
Chloride 102
Carbon Dioxide 23
BUN 11
Creatinine 0.9
Glucose 96
Calcium 8.3 L
Vital Signs:
Vital Signs
Temp Pulse Resp BP Pulse Ox
97.1 F 54 16 130/70 100
11/26/24 08:11 11/26/24 08:11 11/26/24 08:11 11/26/24 08:11 11/26/24 08:11
I&O
11/25/24 11/26/24 11/27/24
05:59 06:59 06:59
Intake Total 320 / 320
Output Total 20 / 20
Balance 300 / 300
Review of Systems
-
History Source: Patient
All other systems: Reviewed and negative
[2024-11-26 15:33] VITALS: BP 127/62
[2024-11-26 16:59] LABS: Glucose - Point of Care 158 mg/dl (70-99)
[2024-11-26] MEDS: NOVOLOG FLEXPEN-LOW RESISTANCE 1 UNITS SC (17:33)
[2024-11-26] MEDS: LOVENOX 40 MG SC (17:33)
[2024-11-26] MEDS: ENTEREG 12 MG PO (21:02)
[2024-11-26 21:43] LABS: Glucose - Point of Care 176 mg/dl (70-99)
[2024-11-26 22:35] VITALS: BP 134/83
[2024-11-27] MEDS: TYLENOL PO (05:14)
[2024-11-27 06:00] VITALS: BMI 30.3
[2024-11-27] MEDS: TORADOL 10 MG IV (06:15)
[2024-11-27 07:55] VITALS: BP 160/75
[2024-11-27 08:02] LABS: Glucose - Point of Care 125 mg/dl (70-99)
--- NOTE | 2024-11-27 08:36 | W.PN.HOSP.TC ---
Today's Communication/Plan
-
Discharge planning
Assessment / Plan
Assessment / Plan
Gen-AAOx3, NAD, obese
HEENT-NC, AT, anicteric, clear oral mm
Neck-supple
CV-reg, no M, +S1/S2
Lungs-clear B/L
Abd-soft, NT, ND
Ext-no edema
Musculoskeletal-no cyanosis, clubbing
Skin-warm and dry
Neuro-grossly non-focal
Psych-calm, cooperative
Sigmoid stricture -due to diverticulosis. Stable after robotic sigmoidectomy, lysis of adhesions and flexible sigmoidoscopy 11/23/2024. Stools are recorded as brown and loose.
Diet advanced to low residue by surgical service.
Macrocytic anemia -hemoglobin relatively stable, monitor for now. MCV 98. Etiology and chronicity unknown. Vitamin B12 levels noted to be low despite taking B12 replacement at home. Continue higher dose of B12.
No evidence of iron deficiency. Folic acid level normal.
Leukopenia - Absolute lymphopenia noted. ANC is normal. Unclear if this is his baseline.
Hyponatremia - improved, 135. Mild fluid restriction.
Essential hypertension -stable. Continue ramipril.
Hyperlipidemia -on gemfibrozil, atorvastatin.
DM2 without hyperglycemia -on metformin at home. Hold metformin in the hospital, use low resistance NovoLog scale. Hemoglobin A1c 6.3%. Glucose is controlled. Can resume metformin upon discharge.
GERD
Diverticulosis
Down syndrome
Obesity due to excess calories
Full code
Dispo -likely discharge today as per surgical service. From medical services no objection for discharge.
Anticipated Discharge: Today
Subjective/Interval History
-
Date of Service: November 27, 2024
Denies any new complaints. No chest pain or shortness of breath.
Objective Data
-
Vital Signs:
Vital Signs
Temp Pulse Resp BP Pulse Ox
97.9 F 60 18 160/75 97
11/27/24 07:55 11/27/24 07:55 11/27/24 07:55 11/27/24 07:55 11/27/24 07:55
I&O
11/26/24 11/27/24 11/28/24
06:59 06:59 06:59
Intake Total 1340 / 1340
Output Total 65 / 65
Balance 1275 / 1275
[2024-11-27] MEDS: TYLENOL 650 MG PO (08:44)
[2024-11-27] MEDS: LOPID 600 MG PO (08:44)
[2024-11-27] MEDS: NOVOLOG FLEXPEN-LOW RESISTANCE SC ×2 (08:44→12:30)
[2024-11-27] MEDS: LIPITOR 40 MG PO (08:44)
[2024-11-27] MEDS: ALTACE 10 MG PO (08:45)
[2024-11-27] MEDS: PROTONIX 40 MG PO (08:45)
[2024-11-27] MEDS: ENTEREG 12 MG PO (08:45)
[2024-11-27] MEDS: FOLVITE 1 MG PO (08:46)
[2024-11-27] MEDS: VITAMIN B-12 2000 MCG PO (08:46)
--- NOTE | 2024-11-27 11:17 | CM ---
Reviewed the chart notes and spoke with the patient at the bedside. IMM reviewed. The patient anticipates being discharged to home today. Patient's POA Andres will provide the transportation. CM continues to be available to patient/family and is
monitoring medical plan for needs at discharge.
Plan: Discharge to home with no anticipated needs.
[2024-11-27 12:00] VITALS: BP 136/61
[2024-11-27 12:03] LABS: Glucose - Point of Care 165 mg/dl (70-99)
[2024-11-27] MEDS: TORADOL IV (12:31)
== END 2024-11-27 12:35 | disposition home or self-care (01) | DRG 330 ==
LOC: 2 SOUTH 14:56
PROVIDERS: Physician Assistant; ADMITTING PHYSICIAN Surgery; FAMILY PHYSICIAN Internal Medicine; OTHER PHYSICIAN Hospitalist
PROC: 0DJD8ZZ Inspection of Lower Intestinal Tract, Via Natural or Artificial Opening Endoscopic (ICD-10-PCS; 2024-11-22)
PROC: 0DBN4ZZ Excision of Sigmoid Colon, Percutaneous Endoscopic Approach (ICD-10-PCS; 2024-11-24)
PROC: 0DNN4ZZ Release Sigmoid Colon, Percutaneous Endoscopic Approach (ICD-10-PCS; 2024-11-24)
PROC: 8E0W4CZ Robotic Assisted Procedure of Trunk Region, Percutaneous Endoscopic Approach (ICD-10-PCS; 2024-11-24)
DX: K57.30 Diverticulosis of large intestine without perforation or abscess without bleeding (principal); E87.1 Hypo-osmolality and hyponatremia; K56.699 Other intestinal obstruction unspecified as to partial versus complete obstruction; Q90.9 Down syndrome, unspecified; K21.9 Gastro-esophageal reflux disease without esophagitis; E78.5 Hyperlipidemia, unspecified; E11.9 Type 2 diabetes mellitus without complications; I10 Essential (primary) hypertension; K66.0 Peritoneal adhesions (postprocedural) (postinfection); N40.0 Benign prostatic hyperplasia without lower urinary tract symptoms; D53.9 Nutritional anemia, unspecified; E66.09 Other obesity due to excess calories; Z68.30 Body mass index [BMI] 30.0-30.9, adult; Z79.84 Long term (current) use of oral hypoglycemic drugs
CPT/HCPCS: 88307; 80048; 82607; 82728; 82746; 82962; 83036; 83540; 83550; 83735; 83930; 83935; 84300; 84443; 85025; 85045; 85610; 85730; 86850; 86900; 86901; 93005; J1335

== ENCOUNTER 2025-02-07 06:19 | Day surgery (SDC) | payer OTHER, SELFPAY ==
[2025-02-07 08:28] LABS: Glucose - Point of Care 85 mg/dl (70-99)
== END 2025-02-07 09:59 | disposition home or self-care (01) ==
LOC: GI 06:19
PROVIDERS: ATTENDING PHYSICIAN Surgery
DX: Z12.11 Encounter for screening for malignant neoplasm of colon (principal); K63.89 Other specified diseases of intestine; Z98.0 Intestinal bypass and anastomosis status
CPT/HCPCS: G0121; 82962